=== PATIENT | female | born 1970 | race African-American/Black ===

== ENCOUNTER → 2021-12-21 14:39 | Outpatient (CLI) | payer OTHER, SELFPAY ==
[2021-12-21 16:22] LABS: Alanine Aminotransferase 49 U/L (12-78); Albumin Level 4.4 g/dl (3.5-5.0); Alkaline Phosphatase 87 U/L (38-126); Aspartate Amino Transferase 43 U/L (14-36); Bilirubin,Indirect 0.3 mg/dL (0.0-0.9); Bilirubin,Total 0.3 mg/dl (0.2-1.3); Bilirubin,Unconjugated 0.6 mg/dL (0.0-1.1); Total Protein,Serum 7.5 g/dl (6.3-8.2)
== END ==
PROVIDERS: PCP Family Medicine; Visit Provider Family Medicine
DX: R17 Unspecified jaundice (principal)
CPT/HCPCS: 36415; 80076

== ENCOUNTER 2023-09-17 13:14 | Outpatient (CLI) | payer OTHER, SELFPAY ==
--- NOTE | 2023-09-17 13:17 | MM_ITS ---
PROCEDURE INFORMATION: Exam: MG Bilateral Screening 3D Mammography Exam date and time: 09/17/2023 1:08 PM Age: 52 years old Clinical indication: Screening mammogram TECHNIQUE: Imaging protocol: Bilateral Screening tomosynthesis and 2D mammography including computer-aided detection (CAD) when performed. COMPARISON: 1. MG DMDXUR DIG MAMM-DX UNILATERAL-RT 03/29/2010 1:18 PM 2. MG Prior Reports 10/18/2009 2:09 PM 3. MG DIGMAMMDX MAMMOGRAM DX-[employer] N/C 09/15/2009 2:09 PM 4. MG Prior Reports 09/15/2009 2:09 PM FINDINGS: MAMMOGRAPHY: Breast composition: The breasts are almost entirely fatty. Mass: Stable benign-appearing subcentimeter nodule is present in the right breast. No new or morphologically suspicious nodule has developed to suggest malignancy. Architectural distortion: No new or suspicious architectural distortion. Calcifications: No new or suspicious calcifications are present Asymmetric density: No new or suspicious asymmetric density is present Skin thickening: None. Axillary adenopathy: None. IMPRESSION: No mammographic evidence of malignancy. Recommend annual screening mammography unless otherwise clinically indicated. ASSESSMENT: BI-RADS category 2: Benign.
== END 2023-09-17 23:59 ==
LOC: RAD 13:14
PROVIDERS: PCP Family Medicine; Visit Provider Family Medicine
DX: Z12.31 Encounter for screening mammogram for malignant neoplasm of breast (principal)
CPT/HCPCS: 77063; 77067

== ENCOUNTER 2024-03-23 16:55 | Emergency (ER) | payer OTHER, SELFPAY ==
[2024-03-23 17:25] VITALS: BP 135/90; PULSE 98; RESP 20; TEMP 36.6; O2SAT 100; BMI 25.7
--- NOTE | 2024-03-23 17:33 | ED_ITS ---
Discharge Plan Disposition Patient Disposition: Home, Self-Care Condition: Good Prescriptions Prescriptions: New prednisone 10 mg tablet 10 mg PO DIRECTED 9 Days Qty: 21 0RF Rx Instructions: Take 4 tablets daily for 3 days, then take 2 tablets daily for 3 days, then take 1 tablet daily for 3 days, then stop. permethrin 5 % cream 1 applic topical Q14D Qty: 60 0RF Rx Instructions: apply second treatment 14 days after first treatment if live lice remain triamcinolone acetonide 0.1 % cream 1 applic topical BID PRN (Reason: itching) Qty: 30 0RF hydroxyzine pamoate [Vistaril] 25 mg capsule 25 mg PO Q6H PRN (Reason: itching) Qty: 30 0RF No Action hydrochlorothiazide 50 mg tablet 50 mg PO DAILY Patient Comments: TAKE 1 TABLET BY MOUTH EVERY MORNING levothyroxine 175 mcg tablet 175 mcg PO DAILY Patient Comments: TAKE 1 TABLET BY MOUTH DAILY methylphenidate HCl 10 mg capsule,ER biphasic 50-50 10 mg PO DAILY rosuvastatin 10 MG tablet 10 mg PO DAILY Patient Comments: take 1 tablet by mouth once daily Referrals Follow up/Referrals: Kelli Lowry MD [Referring] - See instructions Ari Alcala MD [Primary Care Provider] - See instructions Activity Restrictions/Add. Instructions Additional Instructions/Restrictions: Don't start the oral steroids (prednisone) until tomorrow. The vistaril (hydroxyzine) will make you drowsy, so don't drive or operate heavy machinery after taking it. Don't put the topical steroids (triamcinolone) on your face or your groin. Follow up with your regular doctor. Follow up with the stock checkerer (Dr. Lowry). I put in a referral to her. Her office phone number will be on this paperwork. GO TO THE ER FOR ANY WORSENING SYMPTOMS OR CONCERNS Clinical Impressions Clinical Impression: Chronic pruritus Instructions Patient Instructions: Triamcinolone Topical, Hydroxyzine, Permethrin Topical Print Language Print Language: Citizen Of [place] Discharge ED Provider: Tony Lewis [facility] [place] General Stated complaint: Rash all over body Time Seen by Provider: 03/23/24 17:30 History of Present Illness Provider Complaint: She states that for the past 1 month she has had itching of her forearms, abdomen, around her belt line and her upper thighs. She has taken a medrol dose pack and it did help as long as she was on it. Related Data Home Medications ?Medication ?Instructions ?Recorded ?Confirmed rosuvastatin 10 mg tablet 10 mg PO DAILY Cholesterol 04/01/19 09/15/23 hydrochlorothiazide 50 mg tablet 50 mg PO DAILY 09/15/23 09/15/23 levothyroxine 175 mcg tablet 175 mcg PO DAILY 09/15/23 09/15/23 methylphenidate HCl 10 mg biphasic 10 mg PO DAILY 09/15/23 09/15/23 50-50 capsule,extended release Previous Rx's ?Medication ?Instructions ?Recorded hydroxyzine pamoate 25 mg capsule 25 mg PO Q6H PRN itching #30 caps 03/23/24 (Vistaril) permethrin 5 % topical cream 1 applic topical Q14D 2 doses #60 03/23/24 grams prednisone 10 mg tablet 10 mg PO DIRECTED 9 days #21 03/23/24 tabs triamcinolone acetonide 0.1 % 1 applic topical BID PRN itching 03/23/24 topical cream #30 grams Allergies Allergy/AdvReac Type Severity Reaction Status Date / Time No Known Allergies Allergy Verified 09/15/23 10:13 [facility] Disclaimer: The information contained in this section may have been updated after the patient was seen, as this information can be updated by other users. Surgical History (Updated 09/15/23 @ 10:19 by Portia Joseph CMA) History of endometrial ablation H/O thyroidectomy H/O tubal ligation Family History (Updated 09/15/23 @ 10:20 by Portia Joseph CMA) Other Alcoholism Anemia Asthma Cancer Coronary artery disease Diabetes Heart attack Hyperlipidemia Hypertension Stroke Substance abuse Thyroid disorder Social History (Updated 09/15/23 @ 10:20 by Portia Joseph CMA) Smoking Status: Current every day smoker tobacco type: cigarettes packs per day: 1 second hand exposure: Yes alcohol intake: current alcohol intake frequency: holidays/special occasions only substance use type: denies use current occupational status: employed Travel in the last 8 weeks: None housing: house ROS Obtained: Yes All systems reviewed & no additional complaints except as documented Constitutional Constitutional: Denies chills and Denies fever(s) Eyes Eyes: Denies eye discharge ENT Ears, Nose, Mouth, and Throat: Denies dizziness, Denies otalgia and Denies sore throat Cardiovascular Cardiovascular: Denies chest pain Respiratory Respiratory: Denies shortness of breath, Denies chest congestion, Denies cough, Denies stridor and Denies wheezing Gastrointestinal Gastrointestingal: Denies nausea or vomiting Musculoskeletal Musculoskeletal: Reports system reviewed and no additional complaints, except as documented and Denies arthralgias Integumentary/Breasts Skin/Breast: Reports as per HPI and Reports rash Neurologic Neurologic: Denies dizziness and Denies paresthesias Allergic/Immunologic Allergic/Immunologic: Denies wheezing Physical Exam General General appearance: alert and in no apparent distress Head Head exam: atraumatic, normocephalic and normal inspection Eye Eye exam: Present normal appearance, PERRL and EOMI ENT ENT exam: Present normal exam, normal oropharynx, mucous membranes moist, TM's normal bilaterally and normal external ear exam Neck Neck exam: Present normal inspection, full ROM and trachea midline; Absent meningismus or lymphadenopathy Chest Chest inspection: Present normal inspection and symmetric chest wall rise; Absent tenderness Respiratory Respiratory exam: Present normal lung sounds bilaterally; Absent respiratory distress Cardiovascular Cardiovascular exam: Present regular rate and normal rhythm; Absent JVD Abdominal Exam Abdominal exam: Present soft and normal bowel sounds; Absent distention, tenderness or guarding Extremities Exam Extremities exam: Present normal inspection, full ROM and normal capillary refill; Absent calf tenderness Back Exam Back exam: Present normal inspection; Absent tenderness Neurological Exam Neurological exam: Present alert and oriented X3 Psychiatric Psychiatric exam: Present normal affect and normal mood Skin Skin exam: Present rash Lymphatic Lymphatic Findings: no adenopathy Medical Decision Making Medical Records Medical records reviewed: No I reviewed the patient's medical records. Screening: Per USPSTF and CDC recommendations, given the prevalence of disease in our region, it is our hospital?s policy to screen for HIV and viral Hepatitis for all patients aged 18 and over and those with ongoing risk factors. Patrice Inquiry Pt receiving controlled substance: No
[2024-03-23] MEDS: DEXAMETHASONE 4MG/ML 1ML VIAL 8 MG IM (17:46)
[2024-03-23 18:14] VITALS: BP 135/90; PULSE 98; RESP 20; TEMP 36.6; O2SAT 100
== END 2024-03-23 18:17 | disposition home or self-care (01) ==
PROVIDERS: Emergency Provider Nurse Practitioner Family; PCP Family Medicine
DX: L29.9 Pruritus, unspecified (principal)
CPT/HCPCS: 96372; 99213; G0381; J1100

== ENCOUNTER 2024-09-20 14:28 | Outpatient (CLI) | payer OTHER, SELFPAY ==
[2024-09-24 08:29] LABS: HSV-1 DNA Negative (Negative); HSV-2 DNA Negative (Negative)
== END 2024-09-20 23:59 | disposition home or self-care (01) ==
PROVIDERS: PCP Family Medicine; Visit Provider Nurse Practitioner Obstetrics & Gynecology
DX: Z11.3 Encounter for screening for infections with a predominantly sexual mode of transmission (principal)
CPT/HCPCS: 36415; 87529